=== PATIENT | male | born 1965 | race Caucasian/White ===

== ENCOUNTER → 2023-12-08 18:09 | Outpatient (REF) | payer BC, SELFPAY | LOC: MRI 18:09 | PROVIDERS: ATTENDING PHYSICIAN Internal Medicine Gastroenterology; FAMILY PHYSICIAN Family Medicine | DX: K86.2 Cyst of pancreas (principal); K52.9 Noninfective gastroenteritis and colitis, unspecified; K76.0 Fatty (change of) liver, not elsewhere classified | CPT/HCPCS: 74183; A9575 ==

== ENCOUNTER → 2025-03-04 13:10 | Outpatient (REF) | payer BC, SELFPAY | LOC: MRI 3T 13:10 | PROVIDERS: ATTENDING PHYSICIAN Internal Medicine Gastroenterology; FAMILY PHYSICIAN Family Medicine | DX: K86.2 Cyst of pancreas (principal) | CPT/HCPCS: 74183; A9575 ==